=== PATIENT | female | born 1935 | race Caucasian/White ===

== ENCOUNTER 2023-01-11 09:15 | Inpatient (IN) | payer MEDICARE, SELFPAY ==
[2023-01-11] VITALS (18 sets, daily range): BP systolic 76–116; BP diastolic 45–95; PULSE 71–81; RESP 14–20; TEMP 35.7–36.6; O2SAT 79–100; BMI 20.1; BMI 17.4
--- NOTE | 2023-01-11 09:32 | CRLHL7_ITS ---
For Patients: As a result of the Century Cures Act, medical imaging exams and procedure reports are released immediately into your electronic medical record. You may view this report before your referring provider. If you have questions, please contact your health care provider. HISTORY: Fall. TECHNIQUE: AP pelvis and 2 views of the right hip. COMPARISON: No prior. FINDINGS: There is an acute displaced fracture of the right femoral neck. No right hip joint space narrowing. No left hip joint space narrowing. Calcifications within the central pelvis could relate to calcified uterine fibroids. IMPRESSION: Acute displaced right femoral neck fracture. Dictated by New Witt MD @ 01/11/2023 10:00:43 AM Dictated by: New Witt MD @ 01/11/2023 10:00:49 (Electronically Signed)
--- NOTE | 2023-01-11 09:33 | CRLHL7_ITS ---
For Patients: As a result of the Century Cures Act, medical imaging exams and procedure reports are released immediately into your electronic medical record. You may view this report before your referring provider. If you have questions, please contact your health care provider. HISTORY: Fall. TECHNIQUE: One view of the chest. COMPARISON: 12/07/2015. FINDINGS: Cardiac size is mildly prominent but exaggerated by the AP technique. There is no lung consolidation. No pneumothorax or pleural effusion. No pulmonary vascular congestion. There are degenerative changes of the spine. IMPRESSION: 1. No lung infiltrate. 2. Cardiac size is mildly prominent but exaggerated by the AP technique. Dictated by New Witt MD @ 01/11/2023 10:02:33 AM Dictated by: New Witt MD @ 01/11/2023 10:02:37 (Electronically Signed)
--- NOTE | 2023-01-11 09:34 | ED_ITS ---
HPI - Fall General Chief Complaint: Fall/Minor Trauma Stated Complaint: fall, pain R side History of Present Illness HPI Narrative: This 87-year-old female comes in by ambulance because of a fall that occurred last evening. She normally ambulates but since this fall she has not been able to get up. She was picked up from the floor and placed in bed last night. She resides in a group home and has dementia. She is DNR DNI. She has significant dementia such that she is not able to communicate. She is not on any anticoagulants. She has pain in her right hip and her right leg is shortened and externally rotated. Related Data Allergies Allergy/AdvReac Type Severity Reaction Status Date / Time tetanus and diphtheria Allergy Verified 01/11/23 09:11 toxoids tramadol Allergy Verified 01/11/23 09:11 Review of Systems Status of ROS: Reports: unobtainable due to mental status Narrative: Unable to obtain due to dementia PFSH [facility] Social History Smoking Status: Former smoker Do you use any of these nicotine containing products: None How often do you have a drink containing alcohol: never How often do you have six or more drinks on one occasion: Never AUDIT-C Alcohol total score: 0 Non-prescribed substance use: denies use service: No Exam Narrative: Exam Narrative: Constitutional: Well-developed, well-nourished, no acute distress. HEENT: Normocephalic, atraumatic. Neck: Normal range of motion. Nontender. Supple. Heart: Regular. No murmurs. Normal rate. Intact distal pulses. Lungs: Clear to auscultation. No chest discomfort. No wheezes, rhonchi, or rales. Abdomen: Normal bowel sounds. Nontender. No rebound tenderness. Genitalia: Deferred. Back: No midline tenderness. Normal range of motion. Extremities: Right leg is externally rotated and shortened. Distinct pain with any movement of the right leg. Skin: Intact. No rash. Warm. No erythema or pallor. Neurologic: No altered sensation. No weakness. Alert. Psychiatric: Alzheimer's dementia. Nursing notes and vitals signs are reviewed. Const: Vital Signs, click to edit/add: Vital Signs - 24 hr 01/11/23 09:11 Pulse Rate [Pulse Oximeter] 81 Respiratory Rate 20 Blood Pressure [Le ft Upper Arm] 105/63 Pulse Oximetry 92 Oxygen Delivery Me thod Room Air Course Vital Signs Vital signs: Initial Vital Signs Temperature Source Temporal Artery Scan 01/11/23 09:11 Pulse Rate 81 01/11/23 09:11 Pulse Rhythm Regular 01/11/23 09:11 Respiratory Rate 20 01/11/23 09:11 Blood Pressure 105/63 01/11/23 09:11 Blood Pressure Mean 77 01/11/23 09:11 Blood Pressure Position Supine 01/11/23 09:11 Pulse Oximetry 92 01/11/23 09:11 Oxygen Delivery Method Room Air 01/11/23 09:11 Vital Signs Pulse Rate 81 01/11/23 09:11 Respiratory Rate 20 01/11/23 09:11 Blood Pressure 105/63 01/11/23 09:11 Pulse Oximetry 92 01/11/23 09:11 Oxygen Delivery Method Room Air 01/11/23 09:11 Pulse Rate 81 01/11/23 09:11 Respiratory Rate 20 01/11/23 09:11 Blood Pressure 105/63 01/11/23 09:11 Pulse Oximetry 92 01/11/23 09:11 Oxygen Delivery Method Room Air 01/11/23 09:11 MDM - Fall MDM Narrative Medical decision making narrative: This patient comes in because of a fall that occurred last night. Since then she has been unable to ambulate. She has a femoral neck fracture of the right hip seen on x-ray images done here. The patient is not on any anticoagulants and other than her significant dementia she is in reasonable physical health. I spoke with the orthopedic physician's loan assistant composite bond technician regarding these findings and surgery will likely happen tomorrow. Also spoke with the hospitalist composite bond technician, Dr. Kuo, who will arrange for admission. Lab Data Labs: Lab Results 01/11/23 Range/Units 10:08 WBC 8.73 (4.50-11.00) K/uL RBC 4.15 (4.00-5.20) m/uL Hgb 12.7 (12.0-16.0) gm/dL Hct 40.7 (33.0-51.0) % MCV 98 (80-100) fL MCH 31 (26-34) pg MCHC 31 L (32-36) gm/dL RDW Coeff of [place] 12.3 (11.5-15.5) % Plt Count 213 (140-440) K/uL Neut % (Auto) 81.7 H (42.0-72.0) % Lymph % (Auto) 10.8 L (20-44) % [place] % (Auto) 7.0 (0.0-11.0) % Eos % (Auto) 0.0 (0.0-7.0) % Baso % (Auto) 0.2 (0.0-3.0) % Neut # (Auto) 7.10 H (1.7-7.0) K/uL Lymph # (Auto) 0.90 (0.90-2.90) K/uL [place] # (Auto) 0.60 (0.00-0.90) K/UL Eos # (Auto) 0.00 (0.00-0.50) K/uL Baso # (Auto) 0.02 (0.00-0.30) K/uL Abs Immat Gran (auto) 0.03 (0.00-0.30) K/uL Imm/Tot Granulo (auto) 0.3 % Imaging Data XR R Hip: Radiologist's impression: Acute displaced right femoral neck fracture. Chest x-ray: Radiologist's impression: No lung infiltrate. ECG Data Attestation: I personally reviewed and interpreted this ECG as follows: Interpretation: Normal sinus rhythm. Rate is 80 beats per minute. There are no ST or T-wave abnormalities. Discharge Plan Discharge Clinical Impression: Hip fracture Patient Disposition: Admitted As Inpatient Condition: Unchanged Follow Up/Referrals: Shoaib Mccarty MD [Staff Physician] -
[2023-01-11 10:16] LABS: Basophils Absolute Auto 0.02 K/uL (0.00-0.30); Basophils Percent Auto 0.2 % (0.0-3.0); Hematocrit 40.7 % (33.0-51.0); Hemoglobin* 12.7 gm/dL (12.0-16.0); Immature Granulocytes Abs Auto 0.03 K/uL (0.00-0.30); Immature Granulocytes Pct Auto 0.3 %; Lymphocytes Percent Auto 10.8 % (20-44); Mean Corpuscular HGB Conc 31 gm/dL (32-36); Mean Corpuscular Hemoglobin 31 pg (26-34); Mean Corpuscular Volume 98 fL (80-100); Neutrophils Percent Auto 81.7 % (42.0-72.0); Platelet Count* 213 K/uL (140-440); RDW Coefficient of Variation % 12.3 % (11.5-15.5); Red Blood Count 4.15 m/uL (4.00-5.20); White Blood Count* 8.73 K/uL (4.50-11.00)
[2023-01-11 10:21] LABS: Slide Review Reflex No
[2023-01-11 10:33] LABS: Chloride* 108 mmol/L (96-114)
[2023-01-11 10:34] LABS: Sodium* 148 mmol/L (135-149)
[2023-01-11 10:36] LABS: Anion Gap 11 mEq/L (7-15); Carbon Dioxide* 29 mmol/L (20-32); Creatinine* 0.9 mg/dL (0.5-1.5); Est. Creatinine Clearance* 31.81; Estimated Glomerular Filt Rate 62 ml/min
[2023-01-11 10:37] LABS: Blood Urea Nitrogen* 34 mg/dL (7-30); Calcium* 9.2 mg/dL (8.4-10.6); Creatine Kinase* 86 U/L (41-117); Glucose* 168 mg/dL (60-115)
--- NOTE | 2023-01-11 13:12 | PM.IMHP1 ---
Hospitalist- H&P: HPI History of Present Illness Date Seen: 01/11/23 Chief complaint: fall, pain R side Narrative: ADMISSION HISTORY AND PHYSICAL - HOSPITALIST Chief Complaint: resident fell pm of 01/10, nonambulatory on 01/11 - hip fracture. HPI: Holly is a 87-year-old who lives in dementia care at the [address] She has been falling more recently secondary to worsening dementia. She fell again on the evening of 01/10. Staff were able to help her back to bed. No significant injury was suspected. This morning she was unable to walk/ambulate per her routine. They called EMS and had her transported to the ED. An acute displaced right femoral neck fracture was noted on AP pelvis and two views of the right hip. ER COURSE: Evaluated. Patient discussed with family. Admitted. CODE STATUS: DNR/DNI EMERGENCY CONTACT PLAN: Person to Notify? Mode,Juliann A (Poa)? Daughter?Rel to [facility]? [phone] I've updated the PFSH, medications and allergies in the Expanse tabs. INVESTIGATIONS: LABS/MICRO/ECG/IMAGING She is afebrile on all her vital signs are stable. Chest x-ray, CBC, BMP were all obtained. These are normal. ECG shows sinus rhythm. PACs and PVCs are noted. plain films: There is an acute displaced fracture of the right femoral neck. No right hip joint space narrowing. No left hip joint space narrowing. REVIEW OF SYSTEMS: 12-point ROS completed with patient and negative unless otherwise stated in HPI or below. PHYSICAL EXAM: CONSTITUTIONAL: Patient will smile and babble. Nonsensical speech noted. No obvious pain perceived. Daughter Juliann bedside. VITAL SIGNS: see record. HEENT: Normocephalic, atraumatic. PERRL, EOMI, conjunctivae pink, no scleral icterus. Ears and nose externally normal. Pharynx normal. NECK: No JVD. No carotid bruit, no thyromegaly, no adenopathy. CHEST: Clear to auscultation bilaterally HEART: S1 and S2 normal. No harsh murmurs. Edema minimal. MUSCULOSKELETAL: Right hip internally rotated. Good distal pulses. NEURO: Cranial nerves intact. Grossly intact. No asymmetric findings. SKIN: No rashes, petechiae, concerning changes PSYCHIATRIC: Euthymic. [facility] FLOOR C[facility] DVT: Xarelto followed by aspirin per orthopedic protocols GI: PO intake Time spent: Today I spent 75 minutes seeing the patient, discussing the patient with ER staff, reviewing Expanse and EPIC notes/diagnostics, discussing the care plan with our care time that includes social work, PT/OT, pharmacy, RT, intermediate and documenting my impressions and plan in the medical record. [facility] Medical History (Updated 01/11/23 @ 13:27 by Simin Kuo MD) MDD (major depressive disorder) ?F32.9 - Major depressive disorder, single episode, unspecified (ICD-10) History of colon cancer ?Z85.038 - Personal history of other malignant neoplasm of large intestine (ICD-10) Alzheimer's dementia ?G30.9 - Alzheimer's disease, unspecified (ICD-10) ?F02.80 - Dementia in other diseases classified elsewhere, unspecified severity, without behavioral disturbance, psychotic disturbance, mood disturbance, and anxiety (ICD-10) Surgical History (Updated 01/11/23 @ 13:24 by Simin Kuo MD) History of colectomy ?Z90.49 - Acquired absence of other specified parts of digestive tract (ICD-10) History of cataract ?Z86.69 - Personal history of other diseases of the nervous system and sense organs (ICD-10) History of breast biopsy ?Z98.890 - Other specified postprocedural states (ICD-10) History of bilateral salpingo-oophorectomy (BSO) ?Z90.79 - Acquired absence of other genital organ(s) (ICD-10) ?Z90.722 - Acquired absence of ovaries, bilateral (ICD-10) Social History (Updated 01/11/23 @ 13:26 by Simin Kuo MD) Narrative: . 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 previous smoker most of her adult life. Now lives in [facility] care. Smoking Status: Former smoker Do you use any of these nicotine containing products: None How often do you have a drink containing alcohol: never How often do you have six or more drinks on one occasion: Never AUDIT-C Alcohol total score: 0 Non-prescribed substance use: denies use service: No Meds Home Medications and Allergies Home Medications Medication Instructions Recorded Confirmed Type acetaminophen 500 mg tablet (Pain 1,000 mg PO TID 01/11/23 01/11/23 History Reliever Extra Strength (acetaminophen)) citalopram 10 mg tablet 10 mg PO DAILY 01/11/23 01/11/23 History emollient (Vanicream topical) 1 applic topical BID 01/11/23 01/11/23 History lidocaine 4 % topical cream 1 applic topical BID PRN 01/11/23 01/11/23 History loperamide 2 mg capsule 2 mg PO BID PRN diarrhea 01/11/23 01/11/23 History peg 400-propylene glycol (PF) 0.4 1 drp ophthalmic (eye) QID PRN 01/11/23 01/11/23 History %-0.3 % eye drops in a dropperette (Lubricant Eye (PG-PEG 400) (PF)) Allergies Allergy/AdvReac Type Severity Reaction Status Date / Time tetanus and diphtheria Allergy Verified 01/11/23 09:11 toxoids tramadol Allergy Verified 01/11/23 09:11 Exam Const: Vital Signs, click to edit/add: Vital Signs - 24 hr 01/11/23 09:11 01/11/23 11:30 Temperature 97.3 F L Pulse Rate [Left R adial] 72 Pulse Rate [Pulse Oximeter] 81 Respiratory Rate 20 16 Blood Pressure [Le ft Arm] 111/77 Blood Pressure [Le ft Upper Arm] 105/63 Pulse Oximetry 92 94 Oxygen Delivery Me thod Room Air Room Air Hospitalist - H&P: Result Labs Labs: Short CBC 01/11/23 Range/Units 10:08 WBC 8.73 (4.50-11.00) K/uL Hgb 12.7 (12.0-16.0) gm/dL Hct 40.7 (33.0-51.0) % Plt Count 213 (140-440) K/uL BMP 01/11/23 10:08 Sodium 148 Potassium 4.0 Chloride 108 Carbon Dioxide 29 BUN 34 H Creatinine 0.9 Glucose 168 H Calcium 9.2 Cardiac Enzymes 01/11/23 Range/Units 10:08 Total Creatine Kinase 86 (41-117) U/L Assessment and Plan Assessment and plan (1) Femoral neck fracture: Problem comment: right DOI 01/10/23. Mechanical fall from standing. surgery planned for 01/11/23. Medically optimized. Status: Acute (2) Alzheimer's dementia: Problem comment: moderate -severe. babbles. still walking. feeds herslef. lives in memory care. Status: Acute (3) History of colon cancer: Problem comment: s/p colectomy in 2001 Status: Acute (4) MDD (major depressive disorder): Problem comment: stable with celexa 10mg daily Status: Acute
--- NOTE | 2023-01-11 16:01 | PM.ORCN ---
History of Present Illness HPI Date Seen: 01/11/23 Consult date: 01/11/23 Requesting physician: Simin Kuo Chief complaint: fall, pain R side Narrative: Holly is an 87-year-old with past medical history significant for dementia. She lives in the dementia care unit at the [address] Last night, she sustained an unwitnessed fall and was assisted back to bed. This morning, she was refusing to ambulate. She was subsequently transferred to the emergency department via EMS where x-rays revealed a displaced right femoral neck fracture. She has been on bedrest since the injury last ate 7:00 a.m. this morning. Prior to this injury, she was ambulating independently but was falling more frequently as of late. She is not on any anticoagulants and has no history of blood clots. [facility] Medical History (Updated 01/11/23 @ 16:09 by Jerad Kuo MD) MDD (major depressive disorder) ?F32.9 - Major depressive disorder, single episode, unspecified (ICD-10) History of colon cancer ?Z85.038 - Personal history of other malignant neoplasm of large intestine (ICD-10) Alzheimer's dementia ?G30.9 - Alzheimer's disease, unspecified (ICD-10) ?F02.80 - Dementia in other diseases classified elsewhere, unspecified severity, without behavioral disturbance, psychotic disturbance, mood disturbance, and anxiety (ICD-10) Surgical History (Updated 01/11/23 @ 13:24 by Simin uKo MD) History of colectomy ?Z90.49 - Acquired absence of other specified parts of digestive tract (ICD-10) History of cataract ?Z86.69 - Personal history of other diseases of the nervous system and sense organs (ICD-10) History of breast biopsy ?Z98.890 - Other specified postprocedural states (ICD-10) History of bilateral salpingo-oophorectomy (BSO) ?Z90.79 - Acquired absence of other genital organ(s) (ICD-10) ?Z90.722 - Acquired absence of ovaries, bilateral (ICD-10) Social History (Updated 01/11/23 @ 13:26 by Simin Kuo MD) Narrative: . 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 previous smoker most of her adult life. Now lives in memory care. What is your current living situation?: unable to answer Problems where you live: unable to answer Problems where you live details: unable to answer In the past 12 months, utilities in danger of being shut off: unable to answer In past 12 months, lack of transportation kept you from medical appts, meetings, work, or getting things needed for daily living: unable to answer In the past 12 mos, have been you worried that your food would run out before you had money to buy more?: unable to answer In the past 12 mos, the food you bought just didn't last and you didn't have money to buy more?: unable to answer Smoking Status: Former smoker Do you use any of these nicotine containing products: None How often do you have a drink containing alcohol: never How often do you have six or more drinks on one occasion: Never AUDIT-C Alcohol total score: 0 Non-prescribed substance use: denies use How often does anyone, including family, friends and others, physically hurt you: unable to answer How often does anyone, including family, friends and others, insult or talk down to you: unable to answer How often does anyone, including family, friends and others, threaten you with harm: unable to answer How often does anyone, including family, friends and others, scream or curse at you: unable to answer service: No Meds Home Medications and Allergies Home Medications Medication Instructions Recorded Confirmed Type acetaminophen 500 mg tablet (Pain 1,000 mg PO TID 01/11/23 01/11/23 History Reliever Extra Strength (acetaminophen)) citalopram 10 mg tablet 10 mg PO DAILY 01/11/23 01/11/23 History emollient (Vanicream topical) 1 applic topical BID 01/11/23 01/11/23 History lidocaine 4 % topical cream 1 applic topical BID PRN 01/11/23 01/11/23 History loperamide 2 mg capsule 2 mg PO BID PRN diarrhea 01/11/23 01/11/23 History peg 400-propylene glycol (PF) 0.4 1 drp ophthalmic (eye) QID PRN 01/11/23 01/11/23 History %-0.3 % eye drops in a dropperette (Lubricant Eye (PG-PEG 400) (PF)) Allergies Allergy/AdvReac Type Severity Reaction Status Date / Time tetanus and diphtheria Allergy Verified 01/11/23 09:11 toxoids tramadol Allergy Verified 01/11/23 09:11 Ortho Exam Narrative Exam Narrative: General: Patient is alert. She appears comfortable. She babbles but does not verbalize words. She was able to follow some commands. Musculoskeletal: Right lower extremity was examined. Right lower extremity was slightly shortened compared to the left side. She was able to flex and extend her toes and ankle. DP and PT pulses were intact. Foot was warm and well perfused. Const Vital Signs, click to edit/add: Vital Signs - 24 hr 01/11/23 09:11 01/11/23 11:30 01/11/23 11:30 Temperature 97.3 F L Pulse Rate [Left Radial] 72 Pulse Rate [Pulse Oximeter] 81 Respiratory Rate 20 16 Blood Pressure [Left Arm] 111/77 Blood Pressure [Left Upper Arm] 105/63 Pulse Oximetry 92 94 94 Oxygen Delivery Method Room Air Room Air Room Air Results Labs Labs: Laboratory Results - last 48 hr 01/11/23 10:08 WBC 8.73 RBC 4.15 Hgb 12.7 Hct 40.7 MCV 98 MCH 31 MCHC 31 L RDW Coeff of [place] 12.3 Plt Count 213 Neut % (Auto) 81.7 H Lymph % (Auto) 10.8 L [place] % (Auto) 7.0 Eos % (Auto) 0.0 Baso % (Auto) 0.2 Neut # (Auto) 7.10 H Lymph # (Auto) 0.90 [place] # (Auto) 0.60 Eos # (Auto) 0.00 Baso # (Auto) 0.02 Abs Immat Gran (auto) 0.03 Imm/Tot Granulo (auto) 0.3 Sodium 148 Potassium 4.0 Chloride 108 Carbon Dioxide 29 Anion Gap 11 BUN 34 H Creatinine 0.9 Estimated Creat Clear 31.81 Estimated GFR 62 Glucose 168 H Calcium 9.2 Total Creatine Kinase 86 Assessment and Plan Assessment and plan (1) Displaced fracture of right femoral neck: Status: Acute Assessment and Plan: Holly has unfortunately sustained a closed, displaced right femoral neck fracture. Risks and benefits of operative and non operative treatment were discussed with patient's daughter, son, and [id number]. Recommendation was made for surgical intervention consisting of a right hip bipolar hemiarthroplasty. Risks of surgery to include but not limited to infection, neurovascular injury, hip dislocation, failure of procedure, deep vein thrombosis, pulmonary embolism, heart attack, stroke, and even were discussed and all questions were answered. After discussion, they were agreement with plan to proceed with surgery, and informed consent was provided by patient's daughter. We will plan for surgery this afternoon. She is to remain NPO and on bed rest until surgery. Postoperatively she would be admitted to the hospitalist service for medical management until she is appropriate for discharge to a half-way facility. (2) Alzheimer's dementia: Problem comment: moderate -severe. babbles. still walking. feeds herslef. lives in memory care. Status: Acute Total time spent: Total time spent is greater than 50% in coordination of care (as documented) at patient's floor/unit and/or counseling patient: (3) MDD (major depressive disorder): Problem comment: stable with celexa 10mg daily Status: Acute Total time spent: Total time spent is greater than 50% in coordination of care (as documented) at patient's floor/unit and/or counseling patient:
[2023-01-11] MEDS: LACTATED RINGERS 1000 ML 1,000 ML 35 ML IV ×2 (16:10→17:05)
--- NOTE | 2023-01-11 16:12 | PM.ORPRC ---
Procedure Note Date of procedure: 01/11/23 Procedure: PREOPERATIVE DIAGNOSIS: 1. Closed, displaced, right femoral neck fracture POSTOPERATIVE DIAGNOSIS: 1. Closed, displaced, right femoral neck fracture PROCEDURE: 1. Right hip cemented bipolar hemiarthroplasty SURGEON: Donta Kuo MD. AIRLINE DISPATCHER: Emanuel Jones P.A.-C. - laboratory chemical assistant was critical for this case to aid in patient positioning, tissue retraction, limb manipulation/positioning, and wound closure. ANESTHESIA: General anesthetic IMPLANTS: DePuy [place] femoral stem size 5 with standard offset; 10 mm stem centralizer; DePuy 28 mm +1.5 femoral head; DePuy bipolar femoral head with 28 mm inner diameter and 47 mm outer diameter FINDINGS: Displaced subcapital femoral neck fracture EBL: 150 mL COMPLICATIONS: None evident INDICATIONS: The patient is an 87-year-old female with dementia who sustained a right femoral neck fracture after ground level fall last night. She was brought to the emergency department this morning after she was unable to bear weight. Upon admission to the emergency department, she was found to have a displaced basicervical femoral neck fracture. Treatment options were discussed with the patient's family, and recommendation was made for surgical intervention consisting of bipolar right hip hemiarthroplasty. Prior to surgery risks and benefits of treatment were discussed with patient's family, all questions answered, and informed consent was obtained. DESCRIPTION OF PROCEDURE: Following a thorough discussion of risks, benefits, and alternatives consent was obtained and the right hip was marked. The patient was brought to the operating room and placed supine on the operating table. Induction of anesthesia was undertaken. 1 g IV Ancef was administered within 1 hr of incision preoperatively. Patient was then rotated into the left lateral decubitus position. An axillary roll was placed and all bony prominences were well padded. The right hip in lower extremity extremity were prepped and draped in the appropriate sterile fashion using ChloraPrep. A surgical time-out was performed confirming patient identity, surgical site, and surgical procedure. A posterior lateral incision was made centered over the posterior aspect of the greater trochanter. Incision was carried through subcutaneous tissues. The iliotibial band and gluteus karina fascia were identified. The iliotibial band and gluteus karina fascia were then incised in line with the incision and Charnley retractor was placed. Gluteus medius was retracted anteriorly. Piriformis and short external rotators were identified. Piriformis was tagged with a #1 Ethibond stitch and was released off its bony insertion. The short external rotators and capsule were also released off the femur an L-shaped capsulotomy was performed. These tissues were also tagged with a #1 Ethibond stitch. Once the capsulotomy was completed the hip was dislocated. A femoral neck osteotomy was then performed approximately 1 cm proximal to the lesser trochanter. The femoral head was then removed with a corkscrew device. Femoral head measured 46 mm in diameter. We then turned our attention back to the proximal femur. A Nadanu cutter osteotome was used to enter the proximal femur. A canal finder was then used to find the center of the canal. A lateralizing Reamer was used, and the canal was reamed up to the appropriate size and broached sequentially to a size 5 broach. We then trialed 28 mm +1.5 head with 46, 47, and 40 mm shells. With a 47 mm +1.5 head we had best fit and stability. There was good range of motion and good soft tissue tension. The hip was then dislocated trial components were removed. The distal cement restrictor was then placed. The canal was copiously irrigated and dried. Cement was then pressurized into the canal. A size 5 standard offset [place] stem was then inserted into the canal in the appropriate anteversion. We removed excess cement and allowed the cement time to cure. Once the cement had cured, we irrigated the acetabulum and trunnion. We then dried the trunnion and impacted the 28 mm +1.5 femoral head and 47 mm outer diameter shell and appropriate liner. We checked stability 1 more time and again confirmed this to be satisfactory. The hip was then irrigated copious amounts of normal saline. The piriformis, short external rotators, capsule were repaired through bone tunnels into the greater trochanter using#2 FiberWire sutures. The posterior capsule was closed with #1 Vicryl. IT band and gluteus fascia were closed with #1 Ethibond [id number] interrupted sutures followed by running Stratafix stitch. Subcutaneous tissues were closed with 2-0 Vicryl inverted interrupted stitches followed by a running Stratafix stitch and Exofin surgical glue. Following closure, all needle counts were correct. Mepilex dressing was applied, and an abduction pillow was placed between the patient's legs. Patient was then rotated into the supine position. Patient was then transferred to the recovery room in stable condition. PLAN: 1. Patient will be readmitted to the hospitalist service for postoperative medical management. 2. Weight bearing: Weightbearing as tolerated 3. Posterior hip precautions right hip. Abduction pillow to remain in place while patient is in bed. 4. Postoperative antibiotics: Ancef x2 doses postoperatively per protocol 5. Pain control: Oral and IV pain medications. 6. PT/OT consults for ambulation assistance/mobility education 7. DVT prophylaxis: Continue mechanical SCDs while in the hospital. -Aspirin 81 mg bid x 35 days 8. Follow up in [facility] in 6 weeks
[2023-01-11] MEDS: CEFAZOLIN 1 GM inj IVP (16:20)
--- NOTE | 2023-01-11 17:43 | W.PM.NB ---
Nerve Block Nerve Block Time Seen by Provider: 16:30 Date Seen: 01/11/23 Type of block requested by surgeon for post-operative analgesia: ELIZA/LFCN Side: right Time out performed: Yes Verification of patient name: Yes Verification of date of : Yes Site marking: site marked Name of person performing procedure: Franki Hawkins Continuous monitoring Was continuous monitoring of O2 sat, B/P, gambling monitor, recorded every 15 minutes?: Yes Procedure Checklist: sterile prep, needles and gloves Ultrasound guided. Images saved: Yes Medications given in 5ml increments after negative aspiration: Ropivicaine %: 0.5 mL: 25 Needle gauge: 21 Decadron (mg): 10 Precedex (mcg): 15 Patient tolerated procedure well: Yes Additional comments: Injected in 5ml increments after negative aspiration. Block Charges Block Charge (with Pro Fee): Other Periph Nerve Block Use of Ultrasound Machine for Block: Yes- US Guidance/pain block
--- NOTE | 2023-01-11 17:45 | W.ANESCHARGE ---
Anesthesia Charges Start Date/Time Anesthesia Start Date: 01/11/23 Anesthesia Start Time: 16:06 Stop Date/Time Anesthesia Stop Date: 01/11/23 Anesthesia Stop Time: 19:07 Summary Extremes of Age - Over 70 or under 1: VEHICLE ASSEMBLY INSPECTOR
--- NOTE | 2023-01-11 19:10 | CRLHL7_ITS ---
For Patients: As a result of the Cures Act, medical imaging exams and procedure reports are released immediately into your electronic medical record. You may view this report before your referring provider. If you have questions, please contact your health care provider. Indication: POST OP BIPOLAR ARTHROPLASTY Technique: AP hip centered pelvis and lateral view right hip Findings/Impression: Hardware from a right bipolar hip arthroplasty is in satisfactory position. Bone alignment is normal. No sign of acute fracture. Postop changes are within normal limits. Dictated by Rene Mann MD @ 01/12/2023 9:34:09 AM (Electronically Signed)
[2023-01-11] MEDS: ACETAMINOPHEN 650 MG TABLET ER 1300 MG PO (22:45)
[2023-01-11] MEDS: CEFAZOLIN 1 GM in 0.9 % SODIUM CHLORIDE Mini-bag 100 ML IVPB (22:46)
[2023-01-11] MEDS: ASPIRIN 81 MG TABLET EC PO (22:46)
[2023-01-11] MEDS: 0.9 % SODIUM CHLORIDE 500 ML 500 ML IV (22:47)
[2023-01-12] VITALS (8 sets, daily range): BP systolic 89–98; BP diastolic 55–68; PULSE 66–84; RESP 14–16; TEMP 36.4–36.7; O2SAT 80–94; BMI 17.4
[2023-01-12] MEDS: 5 % DEXTROSE IN LAC RINGER'S 1,000 ML 75 ML IV (01:42)
[2023-01-12 06:18] LABS: Hematocrit 31.8 % (33.0-51.0); Hemoglobin* 9.8 gm/dL (12.0-16.0); Mean Corpuscular HGB Conc 31 gm/dL (32-36); Mean Corpuscular Hemoglobin 31 pg (26-34); Mean Corpuscular Volume 99 fL (80-100); Platelet Count* 162 K/uL (140-440); Red Blood Count 3.21 m/uL (4.00-5.20); White Blood Count* 7.94 K/uL (4.50-11.00)
[2023-01-12 06:44] LABS: Slide Review Reflex No
[2023-01-12] MEDS: ACETAMINOPHEN 650 MG TABLET ER 1300 MG PO ×2 (07:54→14:09)
[2023-01-12] MEDS: OXYCODONE 5 MG TABLET PO ×2 (07:54→20:27)
[2023-01-12] MEDS: CEFAZOLIN 1 GM in 0.9 % SODIUM CHLORIDE Mini-bag 100 ML IVPB (08:01)
[2023-01-12] MEDS: LACTATED RINGERS 500 ML 500 ML IV (08:34)
--- NOTE | 2023-01-12 08:37 | P.ORPN_ITS ---
Subjective Subjective Date Seen: 01/12/23 Principal diagnosis: Status postop day 1, right hip bipolar hemiarthroplasty- posterior approach Interval history: Patient generally nonverbal, smiles appropriately, makes some sounds. No acute events over night. Reportedly not producing significant urine output. Pain managed with scheduled and PRN medications, ice. Not able to qualify or quantify pain. DVT prophylaxis: 81 mg aspirin by mouth twice daily, bilateral knee high Sahhid stockings, SCDs, walking. Ortho Exam Narrative Exam Narrative: -Patient appears comfortable in bed, ice present; no apparent acute distress -patient is alert; no clear or obvious orientation -Operative hip mildly swollen; soft tissues supple; no obvious erythema. Ecchymosis minimal. Warmth appropriate -Surgical dressing clean, dry, intact; no obvious drainage, no erythematous streaking peripheral to the bandage -Bilateral calves soft and supple; no significant swelling, edema, obvious tenderness, erythema, discoloration, warmth, or palpable cords -2+ DP/PT pulses, intact dermatomes and myotomes distally. Const Vital Signs, click to edit/add: Vital Signs - 24 hr 01/11/23 09:11 01/11/23 11:30 01/11/23 11:30 Temperature 97.3 F L Pulse Rate Pulse Rate [Left Radial] 72 Pulse Rate [Pulse Oximeter] 81 Respiratory Rate 20 16 Blood Pressure Blood Pressure [Left Arm] 111/77 Blood Pressure [Left Upper Arm] 105/63 Pulse Oximetry 92 94 94 Oxygen Delivery Method Room Air Room Air Room Air Oxygen Flow Rate Fraction of Inspired Oxygen 01/11/23 19:05 01/11/23 19:10 01/11/23 19:15 Temperature 97.8 F Pulse Rate 79 79 72 Pulse Rate [Left Radial] Pulse Rate [Pulse Oximeter] Respiratory Rate 14 14 14 Blood Pressure 96/62 85/71 L 116/84 Blood Pressure [Left Arm] Blood Pressure [Left Upper Arm] Pulse Oximetry 85 L 96 96 Oxygen Delivery Method Room Air Non Rebreather Mask Non Rebreather Mask Oxygen Flow Rate 6 6 Fraction of Inspired Oxygen 01/11/23 19:20 01/11/23 19:25 01/11/23 19:30 Temperature Pulse Rate 71 77 71 Pulse Rate [Left Radial] Pulse Rate [Pulse Oximeter] Respiratory Rate 14 14 14 Blood Pressure 109/95 H 116/72 115/71 Blood Pressure [Left Arm] Blood Pressure [Left Upper Arm] Pulse Oximetry 100 100 100 Oxygen Delivery Method Non Rebreather Mask Non Rebreather Mask Non Rebreather Mask Oxygen Flow Rate 6 6 6 Fraction of Inspired Oxygen 01/11/23 19:35 01/11/23 19:40 01/11/23 20:00 Temperature 97.3 F L 96.3 F L Pulse Rate 72 76 81 Pulse Rate [Left Radial] Pulse Rate [Pulse Oximeter] Respiratory Rate 14 14 14 Blood Pressure 99/73 112/69 Blood Pressure [Left Arm] 104/77 Blood Pressure [Left Upper Arm] Pulse Oximetry 100 93 Oxygen Delivery Method Room Air Room Air Room Air Oxygen Flow Rate Fraction of Inspired Oxygen 01/11/23 20:00 01/11/23 20:15 01/11/23 20:30 Temperature 97.7 F 97.8 F 97.7 F Pulse Rate Pulse Rate [Left Radial] 76 76 76 Pulse Rate [Pulse Oximeter] Respiratory Rate 16 16 16 Blood Pressure Blood Pressure [Left Arm] 107/60 88/45 L 78/45 L Blood Pressure [Left Upper Arm] Pulse Oximetry 93 93 94 Oxygen Delivery Method Nasal Cannula Nasal Cannula Nasal Cannula Oxygen Flow Rate 1.5 1.5 1.5 Fraction of Inspired Oxygen 01/11/23 20:45 01/11/23 21:00 01/11/23 21:30 Temperature 97.7 F Pulse Rate Pulse Rate [Left Radial] 74 76 Pulse Rate [Pulse Oximeter] Respiratory Rate 16 16 Blood Pressure Blood Pressure [Left Arm] 96/56 L 82/47 L 88/61 L Blood Pressure [Left Upper Arm] Pulse Oximetry 93 94 Oxygen Delivery Method Nasal Cannula Nasal Cannula Oxygen Flow Rate 1.5 1 Fraction of Inspired Oxygen 93 01/11/23 22:00 01/11/23 23:00 01/12/23 07:00 Temperature Pulse Rate Pulse Rate [Left Radial] 80 Pulse Rate [Pulse Oximeter] Respiratory Rate 16 Blood Pressure Blood Pressure [Left Arm] 76/51 L Blood Pressure [Left Upper Arm] Pulse Oximetry 94 95 93 Oxygen Delivery Method Nasal Cannula Oxygen Flow Rate 1.5 Fraction of Inspired Oxygen 01/12/23 07:00 01/12/23 08:12 Temperature 97.6 F Pulse Rate Pulse Rate [Left Radial] Pulse Rate [Pulse Oximeter] Respiratory Rate 14 14 Blood Pressure Blood Pressure [Left Arm] 89/62 L Blood Pressure [Left Upper Arm] Pulse Oximetry 93 Oxygen Delivery Method Room Air Oxygen Flow Rate Fraction of Inspired Oxygen Assessment and Plan Assessment and plan (1) Displaced fracture of right femoral neck: Status: Acute (2) Alzheimer's dementia: Problem details: moderate -severe. babbles. still walking. feeds herslef. lives in memory care. Status: Acute (3) MDD (major depressive disorder): Problem details: stable with celexa 10mg daily Status: Acute (4) Status post-operative repair of hip fracture: Problem details: POD 1 right bipolar hemiarthroplasty, posterior approach (01/11/23) Status: Acute Plan - Complete 23 hour perioperative antibiotics. - PT/OT consult for education and assistance. - Social work consult for discharge planning - likely back to SNF - Prescribed analgesics as needed - minimal narcotics are indicated - DVT prophylaxis: 81 mg aspirin by mouth twice daily (35 days), bilateral knee high Shahid Hose stockings and SCDs - Anticipation is for discharge to SNF once patient remains medically stable, pain is controlled, and they are safe with mobilization. Hospitalist is aware of oliguria, ordered LR bolus.
[2023-01-12] MEDS: CITALOPRAM HYDROBROMIDE 20 MG TABLET 10 MG PO (08:59)
[2023-01-12] MEDS: ASPIRIN 81 MG TABLET EC PO (08:59)
[2023-01-12] MEDS: SODIUM CHLORIDE 0.9 % (FLUSH) 10 ML SYRINGE 5 ML IVF ×2 (09:00→23:14)
--- NOTE | 2023-01-12 11:08 | PM.IMPN1 ---
Progress Note: A&P Assessment and plan (1) Displaced fracture of right femoral neck: Problem details: -POD#1 s/p right hip bipolar hemiarthroplasty-posterior approach -PT/OT consults. oil well services superintendent for SNF placement -pain management to include Tylenol, ice. Minimize narcotics, monitoring for sedation -DVT prophylaxis: 81 mg aspirin by mouth twice daily (35 days), bilateral knee high Shahid Hose stockings and SCDs Status: Acute (2) Status post-operative repair of hip fracture: Problem details: -POD#1, management as above -soft blood pressures as can be expected postoperatively. LR 500 mL IV given. 250ml bolus p.r.n. (not on any antihypertensives) -decreased urine output. Bladder scan and straight cath as needed Status: Acute (3) Anemia: Problem details: -postop, hemoglobin 9.8, recheck in a.m. Status: Acute (4) Alzheimer's dementia: Problem details: -moderate-severe. babbles at baseline -monitor following anesthesia, narcotic use Status: Acute (5) MDD (major depressive disorder): Problem details: -stable with celexa 10mg daily Status: Acute Plan CODE: DNR/DNI VTE PPX: Aspirin, SCDs Disposition: oil well services superintendent to assist with SNF placement. Will not return to [facility] Time Spent With Patient Total time spent: Total time spent caring for the patient today was 45 minutes. This includes time spent for the visit reviewing the chart, time spent during the visit, time spent after the visit and documentation and planning in coordination of care. Subjective Date Seen: 01/12/23 Interval history: Patient is seen with 2 daughters at bedside. Smiles. No interactive conversation otherwise, baseline for her. POD#1. Nursing staff reports systolic pressures <100 this morning. Asymptomatic and otherwise vitals stable. Decreased urine output Exam Narrative: Exam Narrative: PHYSICAL EXAM General: Sitting up in chair, smiling, appears in NAD HEENT: Normocephalic, atraumatic, sclera white, EOMI, oral mucosa moist Cardiovascular: RRR, S1S2. No pitting edema Pulmonary: CTA bilaterally without rhonchi, rales, expiratory wheezes. No dyspnea Neurological: Alert, no significant meaningful interaction at baseline, no focal findings Extremities: No gross joint deformity or swelling. Postop dressing in place, clean, dry. Neurovascularly intact Skin: Warm, dry. Const: Vital Signs, click to edit/add: Vital Signs - 24 hr 01/11/23 11:30 01/11/23 11:30 01/11/23 19:05 Temperature 97.3 F L 97.8 F Pulse Rate 79 Pulse Rate [Left R adial] 72 Respiratory Rate 16 14 Blood Pressure 96/62 Blood Pressure [Le ft Arm] 111/77 Pulse Oximetry 94 94 85 L Oxygen Delivery Me thod Room Air Room Air Room Air Oxygen Flow Rate Fraction of Inspir ed Oxygen 01/11/23 19:10 01/11/23 19:15 01/11/23 19:20 Temperature Pulse Rate 79 72 71 Pulse Rate [Left R adial] Respiratory Rate 14 14 14 Blood Pressure 85/71 L 116/84 109/95 H Blood Pressure [Le ft Arm] Pulse Oximetry 96 96 100 Oxygen Delivery Me thod Non Rebreather Mas k Non Rebreather Mas k Non Rebreather Mas k Oxygen Flow Rate 6 6 6 Fraction of Inspir ed Oxygen 01/11/23 19:25 01/11/23 19:30 01/11/23 19:35 Temperature 97.3 F L Pulse Rate 77 71 72 Pulse Rate [Left R adial] Respiratory Rate 14 14 14 Blood Pressure 116/72 115/71 99/73 Blood Pressure [Le ft Arm] Pulse Oximetry 100 100 100 Oxygen Delivery Me thod Non Rebreather Mas k Non Rebreather Mas k Room Air Oxygen Flow Rate 6 6 Fraction of Inspir ed Oxygen 01/11/23 19:40 01/11/23 20:00 01/11/23 20:00 Temperature 96.3 F L 97.7 F Pulse Rate 76 81 Pulse Rate [Left R adial] 76 Respiratory Rate 14 14 16 Blood Pressure 112/69 Blood Pressure [Le ft Arm] 104/77 107/60 Pulse Oximetry 93 93 Oxygen Delivery Me thod Room Air Room Air Nasal Cannula Oxygen Flow Rate 1.5 Fraction of Inspir ed Oxygen 01/11/23 20:15 01/11/23 20:30 01/11/23 20:45 Temperature 97.8 F 97.7 F 97.7 F Pulse Rate Pulse Rate [Left R adial] 76 76 74 Respiratory Rate 16 16 16 Blood Pressure Blood Pressure [Le ft Arm] 88/45 L 78/45 L 96/56 L Pulse Oximetry 93 94 93 Oxygen Delivery Me thod Nasal Cannula Nasal Cannula Nasal Cannula Oxygen Flow Rate 1.5 1.5 1.5 Fraction of Inspir ed Oxygen 01/11/23 21:00 01/11/23 21:30 01/11/23 22:00 Temperature Pulse Rate Pulse Rate [Left R adial] 76 80 Respiratory Rate 16 16 Blood Pressure Blood Pressure [Le ft Arm] 82/47 L 88/61 L 76/51 L Pulse Oximetry 94 94 Oxygen Delivery Me thod Nasal Cannula Nasal Cannula Oxygen Flow Rate 1 1.5 Fraction of Inspir ed Oxygen 93 01/11/23 23:00 01/12/23 00:00 01/12/23 07:00 Temperature 97.7 F Pulse Rate Pulse Rate [Left R adial] 73 Respiratory Rate 16 Blood Pressure Blood Pressure [Le ft Arm] 89/55 L Pulse Oximetry 95 94 93 Oxygen Delivery Me thod Room Air Oxygen Flow Rate 1.5 Fraction of Inspir ed Oxygen 01/12/23 07:00 01/12/23 08:12 01/12/23 08:40 Temperature 97.6 F Pulse Rate Pulse Rate [Left R adial] 74 Respiratory Rate 14 14 16 Blood Pressure Blood Pressure [Le ft Arm] 89/62 L 98/68 Pulse Oximetry 93 94 Oxygen Delivery Me thod Room Air Nasal Cannula Oxygen Flow Rate 1 Fraction of Inspir ed Oxygen Labs Labs: Laboratory Results - last 24 hr 01/12/23 05:38 WBC 7.94 RBC 3.21 L Hgb 9.8 L Hct 31.8 L MCV 99 MCH 31 MCHC 31 L Plt Count 162
--- NOTE | 2023-01-12 13:20 | PC.SOCIAL ---
Addendum entered by DAMASO Palumbo 01/12/23 16:13: Pt has a [facility] Formal Service Waiter, Gladys Zavala, who can be reached at [phone]. Transitions Nurse for [employer], Lisa, can provide any needed documentation and she can be reached at [phone]. Original Note: Discharge planning- Per therapy, pt will need a Short-term rehab stay. Pt is from [facility] staying at [facility] in memory care. Met with pt and pt's daughters and they would like pt to go to [facility], since pt lives on [facility]. Phone call to Nicole in admissions at [facility] at [phone]. Nicole informs there are openings and she will accept a referral. Secure e-mailed referral to Nicole at [facility]. Social work will follow up as needed.
--- NOTE | 2023-01-12 18:51 | PC.NURSE ---
End of shift: Patient is pleasant and cooperative. Uses ceiling lift to bedside commode to void. Ice pack to right hip. family at bedside throughout shift. Takes pills crushed in applesauce. IV in right arm SL. VSS, behaviors indicate pain relief, Scheduled tylenol used for pain. PRN oxy x1 this AM. BP on the lower side, 500cc bolus administered, patient voided, BP still on the lower side.
[2023-01-12] MEDS: ASPIRIN 81 MG TAB.CHEW PO (20:29)
[2023-01-12] MEDS: ACETAMINOPHEN 500 MG TABLET 1000 MG PO (23:13)
[2023-01-12] MEDS: MORPHINE 10 MG/0.5 ML ORAL SOLN PO (23:30)
[2023-01-13] VITALS (9 sets, daily range): BP systolic 88–128; BP diastolic 47–82; PULSE 66–88; RESP 16–22; TEMP 36.5–37.1; O2SAT 84–92
[2023-01-13] MEDS: MORPHINE 10 MG/0.5 ML ORAL SOLN PO (02:30)
--- NOTE | 2023-01-13 04:53 | PC.NURSE ---
Shift note: Pt has been in bed throughout the shift. Unable to verbalized pain. Pt is resisant==
--- NOTE | 2023-01-13 04:54 | PC.NURSE ---
Shift note: Pt has been in bed throughout the shift. Pt was resistant to care and treatment. Poorly took oral medication which was crushed and mixed with applesauce by spitting out some of the medication. Pt appeared agitated, Syr Morphine 5mg given 2x which was tolerated well. O2<90%, fell as low as 84 but pt will not keep oxygen given through NC. Nurse struggled to check BP. Pt is very confused, made several attempt to move out of bed. Pt was unable to verbalize pain, Pain medication given base on pt's actions and agitation. Had large BM tonight. Dressing appeared clean and dry. BP were soft with systolic Bp between 90 and 94. Pt went to sleep very late at 0230 and woke up early at 0500.
[2023-01-13] MEDS: 0.9 % SODIUM CHLORIDE 250 ml 250 ML IV (08:05)
--- NOTE | 2023-01-13 08:39 | P.ORPN_ITS ---
Subjective Subjective Date Seen: 01/13/23 Principal diagnosis: Status postop day 2, right hip bipolar hemiarthroplasty- posterior approach Interval history: Patient is sleeping in bed upon my visit. Did not wake patient. No acute events over night. Patient continues to be nonverbal, confused, difficult following tasks. Pain managed with scheduled and PRN medications, ice. Pain medication administered based on patient agitation. DVT prophylaxis: 81 mg aspirin by mouth twice daily, bilateral knee high Shahid stockings, SCDs. Ortho Exam Narrative Exam Narrative: -Patient appears comfortable sleeping in bed; no apparent acute distress -did not assess right hip or surgical dressing due to patient sleeping -Bilateral calves soft and supple; no significant swelling, edema; no obvious tenderness via grimacing or wincing; no erythema, discoloration, warmth, or palpable cords -2+ DP/PT pulses, intact dermatomes and myotomes distally. Const Vital Signs, click to edit/add: Vital Signs - 24 hr 01/12/23 08:40 01/12/23 11:00 01/12/23 15:00 Temperature 97.6 F Pulse Rate [Left Radial] 74 71 Respiratory Rate 16 16 Blood Pressure [Left Arm] 98/68 89/55 L Pulse Oximetry 94 88 80 L Oxygen Delivery Method Nasal Cannula Room Air Oxygen Flow Rate 1 01/12/23 15:00 01/12/23 15:00 01/12/23 19:00 Temperature 98.0 F 97.9 F Pulse Rate [Left Radial] 66 66 84 Respiratory Rate 16 16 16 Blood Pressure [Left Arm] 91/66 94/58 L Pulse Oximetry 90 84 L Oxygen Delivery Method Room Air Room Air Oxygen Flow Rate 01/12/23 23:00 01/12/23 23:00 01/13/23 03:00 Temperature 97.9 F 97.7 F Pulse Rate [Left Radial] 66 66 Respiratory Rate 16 16 Blood Pressure [Left Arm] 90/58 L 91/49 L Pulse Oximetry 85 L 85 L 89 Oxygen Delivery Method Room Air Room Air Oxygen Flow Rate Assessment and Plan Assessment and plan (1) Displaced fracture of right femoral neck: Problem details: -POD#2 s/p right hip bipolar hemiarthroplasty-posterior approach -PT/OT consults. dietary services director for SNF placement -pain management to include Tylenol, ice. Minimize narcotics, monitoring for se dation -DVT prophylaxis: 81 mg aspirin by mouth twice daily (35 days), bilateral knee high Shahid Hose stockings and SCDs Status: Acute (2) Status post-operative repair of hip fracture: Problem details: -POD#2, management as above -soft blood pressures as can be expected postoperatively. LR 500 mL IV given. 250ml bolus p.r.n. (not on any antihypertensives) -decreased urine output. Bladder scan and straight cath as needed Status: Acute (3) Anemia: Problem details: -postop, hemoglobin 9.8, recheck in a.m. Status: Acute (4) Alzheimer's dementia: Problem details: -moderate-severe. babbles at baseline -monitor following anesthesia, narcotic use Status: Acute (5) MDD (major depressive disorder): Problem details: -stable with celexa 10mg daily Status: Acute Plan - Complete 23 hour perioperative antibiotics. - PT/OT consult for education and assistance. - Social work consult for discharge planning - likely return to [facility], but retirement facility in order to receive PT/OT instead of memory care. [facility] currently assessing. - Prescribed analgesics as needed - DVT prophylaxis: 81 mg aspirin by mouth twice daily, bilateral knee high Shahid Hose stockings and SCDs - Anticipation is for discharge to [facility] if the patient remains medically stable, pain is controlled, and they are safe with mobilization.
[2023-01-13 09:19] LABS: Hematocrit 26.7 % (33.0-51.0); Hemoglobin* 8.2 gm/dL (12.0-16.0); Mean Corpuscular HGB Conc 31 gm/dL (32-36); Mean Corpuscular Hemoglobin 31 pg (26-34); Mean Corpuscular Volume 99 fL (80-100); Platelet Count* 153 K/uL (140-440); Red Blood Count 2.69 m/uL (4.00-5.20); White Blood Count* 8.17 K/uL (4.50-11.00)
[2023-01-13 09:21] LABS: Slide Review Reflex No
[2023-01-13] MEDS: ASPIRIN 81 MG TAB.CHEW PO ×2 (09:23→21:29)
[2023-01-13] MEDS: ACETAMINOPHEN 500 MG TABLET 1000 MG PO ×3 (09:23→21:28)
[2023-01-13] MEDS: CITALOPRAM HYDROBROMIDE 20 MG TABLET 10 MG PO (09:24)
[2023-01-13 09:36] LABS: Chloride* 106 mmol/L (96-114); Potassium* 3.9 mmol/L (3.6-5.1); Sodium* 138 mmol/L (135-149)
[2023-01-13 09:39] LABS: Anion Gap 4 mEq/L (7-15); Blood Urea Nitrogen* 25 mg/dL (7-30); Carbon Dioxide* 28 mmol/L (20-32); Creatinine* 0.7 mg/dL (0.5-1.5); Est. Creatinine Clearance* 30.13; Estimated Glomerular Filt Rate 84 ml/min
[2023-01-13 09:40] LABS: Calcium* 7.7 mg/dL (8.4-10.6); Glucose* 106 mg/dL (60-115)
--- NOTE | 2023-01-13 11:24 | PC.SOCIAL ---
Addendum entered by DAMASO Palumbo 01/13/23 11:40: Provided update on discharge plans to [facility] [employer] Worker, Gladys Zavala, at [phone]. Original Note: Discharge planning- Received a phone call from Nicole in admissions at [facility]. Nicole informs that pt is accepted for admission for tomorrow (01/14/23). Met with pt's daughter (Gladys) in pt's room. Provided update on pt's acceptance to [facility]. Gladys would like an early discharge at 9:00 am to allow herself time to complete admission paperwork before returning to work. Discussed transportation with pt's daughter. Pt will transport via non-emergency ambulance due to pt needing a ceiling lift. Gladys will bring clothing in for pt. Provided update to charge nurse, charge nurse will set up the non-emergency ambulance for 9:00 am. Provided update to pt's daughter and she informs she will come to [facility] before 9:00 am. Provided an update to Nicole in admissions at [facility]. Completed Preadmission screening. Confirmation #[id number]. Social work will follow up as needed.
[2023-01-13] MEDS: SODIUM CHLORIDE 0.9 % (FLUSH) 10 ML SYRINGE 5 ML IVF ×2 (12:07→21:29)
[2023-01-13] MEDS: LIDOCAINE 5% PATCH 1 PATCH TRANSDERMA (12:07)
--- NOTE | 2023-01-13 14:12 | PC.NURSE ---
End of shift: Patient is pleasant and cooperative. wt bearing as tolerated, walker/GB to bedside commode, brief was dry, patient sleepy most of the morning, PT/OT worked w/patient today. Ice pack to right hip. family at bedside throughout shift. Takes pills crushed in applesauce. IV in right arm SL. VSS, behaviors indicate pain relief, Scheduled tylenol used for pain. BP on the lower side, 250cc bolus administered this AM and BP still on the lower side, MD aware. Nurse to Nurse given to JACQUELIN Ding at [facility].
--- NOTE | 2023-01-13 14:17 | PM.IMPN1 ---
Progress Note: A&P Assessment and plan (1) Displaced fracture of right femoral neck: Problem details: -POD#3 s/p right hip bipolar hemiarthroplasty-posterior approach -PT/OT. client services account manager for SNF placement -pain management to include Tylenol, ice, lidocaine patch. Minimize narcotics, monitoring for sedation -DVT prophylaxis: 81 mg aspirin by mouth twice daily (35 days), bilateral knee high Shahid Hose stockings and SCDs Status: Acute (2) Status post-operative repair of hip fracture: Problem details: -POD#3, management as above -soft blood pressures as can be expected postoperatively. LR 500 mL IV given. 250ml bolus p.r.n. (not on any antihypertensives), remains asymptomatic -decreased urine output, intermittent. Did have good urine output yesterday after physically sitting on toilet. Bladder scan and straight cath as needed Status: Acute (3) Anemia: Problem details: -postop, hemoglobin 9.8 on 01/12, down trending to 8.2 on 01/13. Remains asymptomatic -recheck in morning, discuss with Ortho and consider transfusion if continues to drop or become symptomatic Status: Acute (4) Alzheimer's dementia: Problem details: -moderate-severe. babbles at baseline -monitor following anesthesia, narcotic use Status: Acute (5) MDD (major depressive disorder): Problem details: -stable with celexa 10mg daily Status: Acute Plan Awaiting placement Time Spent With Patient Total time spent: Total time spent caring for the patient today was 45 minutes. This includes time spent for the visit reviewing the chart, time spent during the visit, time spent after the visit and documentation and planning in coordination of care. Subjective Date Seen: 01/13/23 Interval history: Patient is seen with daughter at bedside. Nonverbal this morning but makes eye contact. Per nursing staff, patient received morphine and oxycodone overnight. Reported to be mildly agitated which improved following narcotic administration. Good urine output yesterday, decreased this morning. Blood pressures remained soft without new symptomatology. Exam Narrative: Exam Narrative: PHYSICAL EXAM General: Sitting up in bed, smiles, NAD HEENT: Normocephalic, atraumatic, sclera white, EOMI, oral mucosa moist Cardiovascular: RRR, S1S2. No pitting edema Pulmonary: CTA bilaterally without rhonchi, rales, expiratory wheezes. No dyspnea Abdominal: Soft, nondistended, NTTP Neurological: Alert, nonverbal, no focal findings Extremities: No gross joint deformity or swelling. Postoperative dressing and bolster in place. Neurovascularly intact Skin: Warm, dry. Const: Vital Signs, click to edit/add: Vital Signs - 24 hr 01/12/23 15:00 01/12/23 15:00 01/12/23 15:00 Temperature 98.0 F Pulse Rate [Left R adial] 66 66 Respiratory Rate 16 16 Blood Pressure [Le ft Arm] 91/66 Pulse Oximetry 80 L 90 Oxygen Delivery Me thod Room Air Oxygen Flow Rate Fraction of Inspir ed Oxygen 01/12/23 19:00 01/12/23 23:00 01/12/23 23:00 Temperature 97.9 F 97.9 F Pulse Rate [Left R adial] 84 66 Respiratory Rate 16 16 Blood Pressure [Le ft Arm] 94/58 L 90/58 L Pulse Oximetry 84 L 85 L 85 L Oxygen Delivery Me thod Room Air Room Air Oxygen Flow Rate Fraction of Inspir ed Oxygen 01/13/23 03:00 01/13/23 07:00 01/13/23 07:00 Temperature 97.7 F Pulse Rate [Left R adial] 66 84 Respiratory Rate 16 16 Blood Pressure [Le ft Arm] 91/49 L Pulse Oximetry 89 89 Oxygen Delivery Me thod Room Air Oxygen Flow Rate Fraction of Inspir ed Oxygen 01/13/23 07:00 01/13/23 08:00 01/13/23 11:00 Temperature 98.3 F 98.3 F 98.0 F Pulse Rate [Left R adial] 84 84 88 Respiratory Rate 16 16 16 Blood Pressure [Le ft Arm] 106/61 106/61 88/57 L Pulse Oximetry 89 89 88 Oxygen Delivery Me thod Room Air Room Air Room Air Oxygen Flow Rate 1 1 Fraction of Inspir ed Oxygen 93 93 Labs Labs: Laboratory Results - last 24 hr 01/13/23 08:55 WBC 8.17 RBC 2.69 L Hgb 8.2 L Hct 26.7 L MCV 99 MCH 31 MCHC 31 L Plt Count 153 Sodium 138 Potassium 3.9 Chloride 106 Carbon Dioxide 28 Anion Gap 4 L BUN 25 Creatinine 0.7 Estimated Creat Clear 30.13 Estimated GFR 84 Glucose 106 Calcium 7.7 L
--- NOTE | 2023-01-13 18:46 | PC.NURSE ---
End of Shift: Patient pleasant and cooperative. Patient with soft BP's but stable, lungs clear, BS WNL, IV SL. Patient 2 assist/ceiling lift. Patient urinated once and had loose BM on commode. Patient was fed by family member and barely ate. Patient pockets food in mouth. Ice applied to right hip. Right Hip dressing C/D/I.
[2023-01-14 04:15] VITALS: BP 118/71; PULSE 70; RESP 16; TEMP 36.9; O2SAT 95
[2023-01-14 06:39] LABS: Basophils Absolute Auto 0.02 K/uL (0.00-0.30); Basophils Percent Auto 0.3 % (0.0-3.0); Eosinophils Percent Auto 2.9 % (0.0-7.0); Hematocrit 26.7 % (33.0-51.0); Hemoglobin* 8.3 gm/dL (12.0-16.0); Immature Granulocytes Abs Auto 0.03 K/uL (0.00-0.30); Immature Granulocytes Pct Auto 0.4 %; Lymphocytes Percent Auto 14.6 % (20-44); Mean Corpuscular HGB Conc 31 gm/dL (32-36); Mean Corpuscular Hemoglobin 31 pg (26-34); Mean Corpuscular Volume 99 fL (80-100); Monocytes Percent Auto 7.1 % (0.0-11.0); Neutrophils Percent Auto 74.7 % (42.0-72.0); Platelet Count* 182 K/uL (140-440); RDW Coefficient of Variation % 12.7 % (11.5-15.5); Red Blood Count 2.71 m/uL (4.00-5.20); White Blood Count* 6.93 K/uL (4.50-11.00)
[2023-01-14 07:12] LABS: Chloride* 106 mmol/L (96-114); Potassium* 3.8 mmol/L (3.6-5.1); Sodium* 139 mmol/L (135-149)
[2023-01-14 07:15] LABS: Anion Gap 6 mEq/L (7-15); Blood Urea Nitrogen* 25 mg/dL (7-30); Carbon Dioxide* 27 mmol/L (20-32); Creatinine* 0.7 mg/dL (0.5-1.5); Est. Creatinine Clearance* 30.13; Estimated Glomerular Filt Rate 84 ml/min; Glucose* 102 mg/dL (60-115)
[2023-01-14 07:16] LABS: Calcium* 7.9 mg/dL (8.4-10.6)
[2023-01-14 07:17] LABS: Slide Review Reflex No
[2023-01-14 07:30] VITALS: BP 108/71; PULSE 67; RESP 16; TEMP 36.8; O2SAT 88; O2SAT 91
--- NOTE | 2023-01-14 08:02 | PC.NURSE ---
END OF SHIFT NOTE: PT WITH ALZHEIMER DEMENTIA. PT WITH GARBLED/MUMBLED SPEECH. ACTIVE ICE TO R HIP; DRESSING C/D/I. VSS ON 1-1.5L NC; AFEBRILE. LIDOCAINE PATCH REMOVED AT MIDNIGHT. PT SLEPT THROUGHOUT THE NIGHT. BED ALARM ON AND CALL LIGHT WITHIN PT?S REACH.?
[2023-01-14] MEDS: CITALOPRAM HYDROBROMIDE 20 MG TABLET 10 MG PO (09:24)
[2023-01-14] MEDS: ASPIRIN 81 MG TAB.CHEW PO (09:24)
[2023-01-14] MEDS: ACETAMINOPHEN 500 MG TABLET 1000 MG PO (09:24)
--- NOTE | 2023-01-14 12:04 | PC.NURSE ---
PATIENT'S O2 SATS THIS AM NOTED TO BE 88%RA; REPLACED 1L O2 PER NC AND O2 SATS INCREASED TO 91-92%. EULA JORGE UPDATED AND PLAN TO ORDER O2 FOR DC. REPORT GIVEN TO RN AT [facility] AND PATIENT TRANSFERRED TO [facility] VIA NON-EMERGENT EMS. DAUGHTER PRESENT AT TIME OF TRANSPORT AND DAUGHTER TOOK PATIENT'S BELONGINGS.
--- NOTE | 2023-01-14 14:39 | P.DS_ITS ---
DS: Providers Provider Date Seen: 01/14/23 Date of admission: 01/11/23 12:15 Primary care physician: Lakisha Armstrong APRN, BEAUTY COUNSELOR Admitting Clinician: Simin Kuo MD Consults: 01/11/23 12:15 Consult to Occupational Therapy [CONS] Routine Comment: Reason(s) for OT Consult:: Evaluate and Treat Any Restrictions?:: No Restrictions Consult to Physical Therapy [CONS] Routine Comment: Reason(s) for PT Consult:: Evaluate and Treat Any Restrictions?:: No Restrictions Consult to Geographic Area Intelligence Officer [CONS] Routine Comment: Reason for Consult:: Social Service Consult 01/11/23 20:18 Consult to Geographic Area Intelligence Officer [CONS] Routine Comment: Reason for Consult:: Discharge Planning Needs Attending Physician on discharge: TODD Becker, [facility] Date of Discharge: 01/14/23 DS: Diagnosis Discharge Diagnosis (1) Displaced fracture of right femoral neck: Status: Acute Problem details: -DOI 01/10/23. Mechanical fall from standing -POD#3 s/p right hip bipolar hemiarthroplasty-posterior approach -PT/OT consulted. telephone services sales representative assisted in SNF placement -pain management to include Tylenol, ice, lidocaine patch. Continue to minimize narcotics, monitoring for sedation -DVT prophylaxis: 81 mg aspirin by mouth twice daily (35 days), bilateral knee high Bernardino Hose stockings and SCDs, to be continued on discharge (2) Status post-operative repair of hip fracture: Status: Acute Problem details: -POD#3, management as above -soft blood pressures as can be expected postoperatively. LR 500 mL IV given. 250ml bolus p.r.n. (not on any antihypertensives), remained asymptomatic -decreased urine output, intermittent. Improved with sitting on toilet. (3) Anemia: Status: Acute Problem details: -in postop period, hemoglobin 9.8 on 01/12, down trending to 8.2 on 01/13. Hemoglobin 8.3 on day of discharge. Remained asymptomatic -follow-up with PCP for recheck (4) Hypotension: Status: Acute Problem details: -postoperatively. Remained asymptomatic. Responded to intermittent boluses of IV fluids. Adequate urine output at time of discharge. -continue to monitor, minimizing narcotics upon discharge. -follow-up with outpatient PCP DS: Summary Hospital Course Hospital Course: [age] year old female past medical history significant for Alzheimer's dementia, depression, history of colon cancer was admitted to the medical floor for management right femoral neck fracture sustained during a ground level mechanical fall. Course of care and details as noted above. Remainder of chronic medical comorbidities were monitored and managed with home medications. Status at Discharge Overall status at discharge: patient is not back to baseline Time Spent with Patient Time attestation: Total time spent providing and/or coordinating discharge services: Time spent: Greater than 30 minutes Exam Narrative: Exam Narrative: PHYSICAL EXAM General: Sitting up in bed, pleasant, confused, appears in NAD Cardiovascular: RRR, S1S2. No pitting edema Pulmonary: CTA bilaterally without rhonchi, rales, expiratory wheezes. No dyspnea Neurological: Alert, nonverbal, smiles Extremities: No gross joint deformity or swelling. Postoperative dressing in place, dry. AROMI. Neurovascularly intact Skin: Warm, dry. Const: Vital Signs, click to edit/add: Vital Signs - 24 hr 01/13/23 14:59 01/13/23 15:00 01/13/23 15:00 Temperature 98.7 F Pulse Rate [Left R adial] 76 76 Pulse Rate [Pulse Oximeter] Respiratory Rate 22 22 Blood Pressure [Le ft Arm] 98/47 L Pulse Oximetry 84 L 84 L Oxygen Delivery Me thod Room Air Oxygen Flow Rate 01/13/23 19:00 01/13/23 21:53 01/13/23 21:53 Temperature Pulse Rate [Left R adial] Pulse Rate [Pulse Oximeter] 82 Respiratory Rate 20 20 Blood Pressure [Le ft Arm] 128/82 Pulse Oximetry 86 L 86 L Oxygen Delivery Me thod Nasal Cannula Oxygen Flow Rate 1 01/13/23 23:30 01/14/23 04:15 01/14/23 07:30 Temperature 98.5 F Pulse Rate [Left R adial] Pulse Rate [Pulse Oximeter] 78 70 Respiratory Rate 16 16 Blood Pressure [Le ft Arm] 128/82 118/71 Pulse Oximetry 92 95 88 Oxygen Delivery Me thod Nasal Cannula Nasal Cannula Oxygen Flow Rate 1.5 1 01/14/23 07:30 01/14/23 07:30 Temperature 98.3 F Pulse Rate [Left R adial] Pulse Rate [Pulse Oximeter] 67 67 Respiratory Rate 16 16 Blood Pressure [Le ft Arm] 108/71 Pulse Oximetry 91 Oxygen Delivery Me thod Nasal Cannula Oxygen Flow Rate 1 DS: Data Data Completed and Pending Labs on day of discharge: Labs from last 24 hours 01/14/23 05:38 WBC 6.93 RBC 2.71 L Hgb 8.3 L Hct 26.7 L MCV 99 MCH 31 MCHC 31 L RDW Coeff of [place] 12.7 Plt Count 182 Neut % (Auto) 74.7 H Lymph % (Auto) 14.6 L [place] % (Auto) 7.1 Eos % (Auto) 2.9 Baso % (Auto) 0.3 Neut # (Auto) 5.20 Lymph # (Auto) 1.00 [place] # (Auto) 0.50 Eos # (Auto) 0.20 Baso # (Auto) 0.02 Abs Immat Gran (auto) 0.03 Imm/Tot Granulo (auto) 0.4 Sodium 139 Potassium 3.8 Chloride 106 Carbon Dioxide 27 Anion Gap 6 L BUN 25 Creatinine 0.7 Estimated Creat Clear 30.13 Estimated GFR 84 Glucose 102 Calcium 7.9 L Discharge Plan Discharge Disposition: [facility] Date of Admission: 01/11/23 12:15 Attending Provider on Discharge: Stephanie Reyes Primary Care Provider: Lakisha Armstrong Condition: Unchanged Discharge Medications: New aspirin 81 mg tablet,delayed release (DR/EC) 81 mg PO BID Qty: 70 0RF Rx Instructions: Medication to help prevent blood clots postoperatively; take TWICE daily. oxycodone 5 mg tablet 2.5 - 5 mg PO Q4-6H MDD 6 PRN (Reason: pain) Qty: 25 0RF Rx Instructions: Take as needed for postop pain: 2.5mg mild pain, 5mg moderate-severe pain; wean as tolerated. sennosides-docusate sodium [Senna-S] 8.6-50 mg tablet 1 - 2 tab-cap PO BID PRN (Reason: constipation) Qty: 60 0RF Rx Instructions: Hold medication if experiencing loose stools. Continued acetaminophen [Pain Reliever ES(acetaminophn)] 500 mg tablet 1,000 mg PO TID citalopram 10 mg tablet 10 mg PO DAILY emollient [Vanicream] Cream 1 applic topical BID Rx Instructions: TO LEFT LOWER LEG loperamide 2 mg capsule 2 mg PO BID PRN (Reason: diarrhea) lidocaine 4 % cream 1 applic topical BID PRN Rx Instructions: TO LOWER BACK Lubricant Eye (PG-PEG 400)(PF) 0.4-0.3 % dropperette 1 drp ophthalmic (eye) QID PRN Discharge Orders: Discharge Order (Routine); Ordered 01/14/23 Ordered By: Stephanie Reyes Activity Level: Up with assist, Weight Bearing as Tolerated and Use Walker Activity Detail: Wound: ?May remove dressing after 1 week. Remove dressing if integrity is in question. ?No immersing wound in water; showering okay; light scrub with your hand and body soap, rinse, dab dry ?Sutures are under the skin, will dissolve; allow surgical glue to come off naturally; do not scrub the wound or apply ointments/lotions ?Call our office with any redness that streaks, excessive drainage from the wound, or wound gapping. Ice/Elevate: ?Ice as needed for swelling and discomfort (cryocuff or ice pack); elevate frequently above the heart BERNARDINO socks: ?Wear for 1 month, remove for 1 hour 3 times per day ?These are frustrating to take on/off, but are important for blood clot prevention for 1 month after surgery Blood Clot Prevention (DVT): ?Medication: 81 mg aspirin by mouth twice daily (total 35 days protection). Dental: ?No elective dental work for 6 months post-op. If there is an urgent/emergent dental need, contact our office for an antibiotic prescription. Smoking/Alcohol: ?Do not smoke; do no drink alcohol especially when taking postoperative oral narcotic medication Seek Care from you Primary Care Provider if you experience the following issues in the postoperative phase and beyond: ?Bacterial infections such as: pneumonia, bacterial skin infection (cellulitis), UTI, high fever, chills unrelated to the operative body part - call your [facility] physician urgently for treatment in hopes to protect your health and the metal implant. Referrals: ?PT, OT per patient preference - evaluate treat total hip arthroplasty protocol (gait training, ROM, ADLs) Follow up: ?Ortho surgeon follow-up in 6 weeks; repeat radiographs AP pelvis, cross-table lateral operative hip ?PA-C visit in 1 week; we understand this visit may be difficult; phone visit is okay. No vaccines until 4-6 weeks postop *If there are any acute concerns regarding your surgery, please call our orthopedic clinic ([phone]) Discharge Diet: Regular Follow Up Appointments: Lakisha Armstrong APRN, JUHI [Primary Care Provider] - Shoaib Mccarty MD [Staff Physician] - Emanuel Jones PA-C [Physician Telephone Sex Worker] - Admit to: SNF Discharge Potential: Fair Length of Stay: <30 days Can use facility standing orders?: Yes Code Status: DNR/DNI TEDs: Bilateral Knee Rehab Potential: Fair Therapy: Physical Therapy and Occupational Therapy Therapy Orders: Evaluate and Treat, Total Hip Protocol and Total Hip Precautions Oxygen: Yes Oxygen Delivery Method: Nasal Cannula Oxygen Flow Rate: 1-4L Orders are good >30 days: Yes Signature: TODD Becker, [facility]C [facility]
--- NOTE | 2023-01-22 10:22 | P.NB_ITS ---
Nerve Block Nerve Block Time Seen by Provider: 16:30 Date Seen: 01/11/23 Type of block requested by surgeon for post-operative analgesia: ELIZA/LFCN Side: right Time out performed: Yes Verification of patient name: Yes Verification of date of : Yes Site marking: site marked Name of person performing procedure: Franki Hawkins Continuous monitoring Was continuous monitoring of O2 sat, B/P, air sampling and monitoring, recorded every 15 minutes?: Yes Procedure Checklist: sterile prep, needles and gloves Ultrasound guided. Images saved: Yes Medications given in 5ml increments after negative aspiration: Ropivicaine %: 0.5 mL: 25 Needle gauge: 21 Decadron (mg): 10 Precedex (mcg): 25 Patient tolerated procedure well: Yes Additional comments: Injected in 5ml increments after negative aspiration. Block Charges Block Charge (with Pro Fee): Other Periph Nerve Block Use of Ultrasound Machine for Block: Yes- US Guidance/pain block
== END 2023-01-14 09:22 | DRG 522 ==
LOC: ED 10:38 → MEDSURG 11:05
PROVIDERS: Orthopaedic Surgery; Physician Assistant; Admitting Provider Family Medicine; Emergency Provider Emergency Medicine Emergency Medical Services; PCP Nurse Practitioner Adult Health; Visit Provider Family Medicine
PROC: 0SRR0J9 Replacement of Right Hip Joint, Femoral Surface with Synthetic Substitute, Cemented, Open Approach (ICD-10-PCS; principal; 2023-01-11 16:00)
DX: S72.011A Unspecified intracapsular fracture of right femur, initial encounter for closed fracture (principal); D62 Acute posthemorrhagic anemia; I95.81 Postprocedural hypotension; G89.18 Other acute postprocedural pain; Z91.81 History of falling; W19.XXXA Unspecified fall, initial encounter; Y92.129 Unspecified place in nursing home as the place of occurrence of the external cause; F32.9 Major depressive disorder, single episode, unspecified; G30.9 Alzheimer's disease, unspecified; F02.C0 Dementia in other diseases classified elsewhere, severe, without behavioral disturbance, psychotic disturbance, mood disturbance, and anxiety; Z85.038 Personal history of other malignant neoplasm of large intestine
CPT/HCPCS: 01214; 36415; 64450; 71045; 73501; 73502; 76942; 80048; 82550; 85025; 85027; 93005; 94761; 97161; 97166; 97530; 97535; 99100; 99285; A0425; A0427; A0428; A9270; C1776; J0690; J2250; J2371; J2405; J2704; J3490; J7050; J7120